=== PATIENT | male | born 1955 | race Caucasian/White ===

== ENCOUNTER 2021-08-02 16:15 | Emergency (ER) | payer MEDICARE, SELFPAY ==
--- NOTE | ~2021-08-02 | XR_ITS ---
EXAMINATION: XR chest 1V portable Exam Date/Time: 08/02/2021 16:30 CDT CLINICAL HISTORY: chest pain Comparison: 01/19/2014. RESULT: Lines, tubes, and devices: Intact sternotomy wires. Mediastinal vascular clips. Lungs and pleura: Bibasilar scar/atelectasis, otherwise clear. Cardiomediastinal silhouette: Stable cardiomediastinal silhouette. Other: No acute osseous or upper abdominal finding. IMPRESSION: No acute cardiopulmonary process Reviewed, dictated and finalized at location K.
[2021-08-02 16:18] VITALS: BP 106/86; PULSE 88; RESP 20; O2SAT 92
--- NOTE | 2021-08-02 16:20 | PC.NURSE ---
Per EDP [place] via verbal order read-back, give 4000 units heparin.
--- NOTE | 2021-08-02 16:25 | ECG_ITS ---
Measurements Intervals [place] Rate: 87 P: 11 RI: 167 QRS: 1 QRSD: 143 T: -26 QT: 385 QTc: 465 Interpretive Statements SINUS RHYTHM WITH OCCASIONAL SUPRAVENTRICULAR PREMATURE COMPLEXES INDETERMINATE AXIS RIGHT BUNDLE BRANCH BLOCK [120+ ms QRS DURATION, UPRIGHT V1, 40+ ms S IN I/aVL/V4/V5/V6] INFERIOR MYOCARDIAL INFARCTION , ACUTE ACUTE VA NO PREVIOUS ECG AVAILABLE FOR COMPARISON Electronically Signed On 08-03-2021 8:01:32 CDT by Joel Stafford M.D.
[2021-08-02 16:30] VITALS: PULSE 97; RESP 19
[2021-08-02 16:31] VITALS: BP 124/71; PULSE 96; RESP 14; O2SAT 99
--- NOTE | 2021-08-02 16:33 | ED.ARRPALP ---
HPI - Arrhythmia/Palpitations General Chief Complaint: Arrhythmia/Palpitations Stated Complaint: low blood pressure, vtach Time Seen by Provider: 08/02/21 16:23 History of Present Illness HPI narrative: Patient is a 66-year-old male who presents ER after becoming unresponsive. According the [facility] minutes prior to arrival patient came in from working on a car and was sitting eating dinner. He stated that he did not feel well and was lightheaded when he lost consciousness and fell to the floor. Patient was blue and she did not feel like he had a pulse. She administered 2 chest compressions. 911 was contacted. EMS arrived and found patient to be responsive and in ventricular tachycardia with rate in the 190s. They administered baby aspirin's as well as amiodarone 150 mg IV. Upon arrival patient has converted to a sinus rhythm. He has no chest pain. He does have an inferior STEMI with anterolateral depressions. Related Data Allergies Allergy/AdvReac Type Severity Reaction Status Date / Time propofol Allergy Rash Verified 08/02/21 16:26 Lzmwasw-JEI-YyL Reductase AdvReac Severe Confusion Verified 08/13/17 10:07 Inhibitor [Himlrku-Qsc-Sao Reductase Inhibitor] Review of Systems Review of Systems: All systems reviewed & are unremarkable except as noted in HPI and below Constitutional: Constitutional: Denies chills, Denies fever(s) and Denies weakness ENT: Denies nasal congestion and Denies sore throat Cardiovascular: Cardiovascular: Reports chest pain, Reports rapid heart rate and Denies radiating jaw, neck or arm pain Neurologic: Reports syncope, Denies headache(s), Denies focal weakness and Denies numbness PMFSH Past Medical History Medical History (Updated 08/02/21 @ 16:45 by Tiburcio Burris MD) BPH (benign prostatic hyperplasia) Coronary artery disease History of hypertension Hyperlipidemia Hypertension Surgical History Surgical History (Updated 08/02/21 @ 16:35 by Tiburcio Burris MD) History of appendectomy History of four vessel coronary artery bypass graft Social History Social History (Updated 08/02/21 @ 16:35 by Tiburcio Burris MD) Smoking status: Former smoker Smoking end date: 04/12/18 Exam Narrative: GENERAL: Well-appearing, well-nourished, and in no acute distress. HEAD: Normocephalic, atraumatic. EYES: PERRL and EOMI. ENT: Mucous membranes moist. CHEST: Clear to auscultation. No respiratory distress. HEART: Regular rate and rhythm. Normal peripheral pulses. ABDOMEN: Soft, nontender, nondistended. EXTREMITIES: Normal range of motion. No edema. SKIN: Warm, dry, no rash. NEURO: Alert and oriented x3. PSYCH: Normal mood and affect. Course Reevaluation(s) Reevaluation #1: Patient has received oral aspirin, heparin 4000 units, and we are waiting to have a driveway attendant call back from [facility] to accept STEMI transfer. The [employer] at this hospital is unavailable as a STEMI on the inpatient side is going to be using the [employer] and grounds restoration specialist. Date: 08/02/21 Time: 16:25 Reevaluation #2: Accepted by Dr. Barnett at [facility] with cardiology, and Dr. Tay in the ER. [facility] is ready to take the patient. Date: 08/02/21 Time: 16:56 Vital Signs Vital signs: Vital Signs Pulse Rate 88 08/02/21 16:18 Respiratory Rate 20 08/02/21 16:18 Blood Pressure 106/86 08/02/21 16:18 Pulse Oximetry 92 08/02/21 16:18 Pulse Rate 95 08/02/21 16:44 Respiratory Rate 20 08/02/21 16:18 Blood Pressure 124/71 08/02/21 16:44 Pulse Oximetry 92 08/02/21 16:18 MDM - Arrhythmia/Palpitations Lab Data Result diagrams: 08/02/21 16:29 08/02/21 16:29 Labs: Lab Results 08/02/21 08/02/21 08/02/21 Range/Units 16:29 16:29 16:29 WBC 9.9 (4.5-10.0) K/mm3 RBC 4.72 (4.6-6.20) M/mm3 Hgb 14.4 (14.0-18.0) g/dL Hct 44.3 (42.0-52.0) % MCV 93.9 (80-100) fl MCH 30.5 (26-34) pg MCHC 32.5 (32-
[2021-08-02 16:36] LABS: Basophils Absolute Auto 0.1 K/mm3 (0.0-0.1); Basophils Percent Auto 0.5 % (0.2-1.2); Eosinophils Absolute Auto 0.3 K/mm3 (0-0.3); Eosinophils Percent Auto 2.5 % (0-4.4); Hematocrit 44.3 % (42.0-52.0); Hemoglobin 14.4 g/dL (14.0-18.0); Immature Granulocyte Absolute 0.03 K/mm3 (0.00-0.031); Immature Granulocyte Percent A 0.3 % (0-0.5); Lymphocytes Absolute Auto 2.26 K/mm3 (0.9-3.2); Lymphocytes Percent Auto 22.9 % (18.3-44.2); Mean Corpuscular HGB Conc 32.5 g/dl (32-36); Mean Corpuscular Hemoglobin 30.5 pg (26-34); Mean Corpuscular Volume 93.9 fl (80-100); Mean Platelet Volume 9.8 fl (7.4-10.4); Monocytes Absolute Auto 0.4 K/mm3 (0.1-0.6); Monocytes Percent Auto 3.9 % (2.6-8.5); Neutrophils Absolute Auto 6.9 K/mm3 (1.3-6.7); Neutrophils Percent Auto 69.9 % (45.5-73.1); Platelet Count Result 265 k/mm3 (150-375); Red Blood Count 4.72 M/mm3 (4.6-6.20); Red Cell Distribution Width 12.3 % (11.5-14.5); White Blood Count 9.9 K/mm3 (4.5-10.0)
[2021-08-02 16:44] VITALS: BP 124/71; PULSE 95
[2021-08-02] MEDS: AMIODARONE 360 MG/D5W 200 ML 360 MG/200 ML BAG 33.33 MG IV CONT (16:44)
[2021-08-02 16:46] LABS: Alanine Aminotransferase 22 U/L (4-50); Albumin Level 4.3 g/dL (3.5-5.1); Alkaline Phosphatase 76 U/L (38-126); Anion Gap 13 mmol/L (8-16); Aspartate Amino Transferase 33 U/L (17-59); Bilirubin,Total 0.9 mg/dL (0.2-1.3); Blood Urea Nitrogen 10 mg/dL (9-20); Calcium 8.7 mg/dL (8.4-10.2); Carbon Dioxide 21 mmol/L (22-30); Chloride 103 mmol/L (98-107); Cholesterol 98 mg/dL (0-200); Estimated CRCL calculation 59 ml/min; Estimated Glomerular Filt Rate > 60; Glucose 183 mg/dL (65-110); HDL Direct 49 mg/dL; Potassium 3.1 mmol/L (3.4-5.0); Sodium 137 mmol/L (137-145); Triglycerides 169 mg/dL (<150)
[2021-08-02 16:52] LABS: INR 1.2; Prothrombin Time 14.3 Seconds (11.1-14.7)
[2021-08-02 16:53] LABS: Partial Thromboplastin Time 26.4 SECONDS (22.3-36.8)
--- NOTE | 2021-08-02 16:53 | PC.NURSE ---
1621 [facility] 1622 N[place] 1623 Kay[facility] 1624 [facility] 1625 [place] 1629 [facility] 1632 [facility] - accepted 5 min ETA 1636 [facility] Cancelled
[2021-08-02 16:58] LABS: Troponin I < 0.012 ng/mL (0.000-0.034)
[2021-08-02 17:10] LABS: LDL Cholesterol Direct < 30 mg/dL
--- NOTE | 2021-08-02 17:16 | PC.NURSE ---
Amiodarone drip continuing to infuse at time of discharge from ED.
== END 2021-08-02 17:02 | disposition short-term general hospital (02) ==
PROVIDERS: Emergency Provider Emergency Medicine; PCP Nurse Practitioner Family
DX: I21.3 ST elevation (STEMI) myocardial infarction of unspecified site (principal); I47.2 Ventricular tachycardia; I25.10 Atherosclerotic heart disease of native coronary artery without angina pectoris; I10 Essential (primary) hypertension; E78.5 Hyperlipidemia, unspecified; N40.0 Benign prostatic hyperplasia without lower urinary tract symptoms; Z87.891 Personal history of nicotine dependence
CPT/HCPCS: 36415; 71045; 80053; 80061; 84484; 85025; 85610; 85730; 86850; 86900; 86901; 93005; 96365; 99291; J0282; J1644

== ENCOUNTER 2021-12-01 13:30 | Outpatient (RCR) | payer MEDICARE, SELFPAY | END 2021-12-01 19:30 | disposition home or self-care (01) | LOC: ANHCPREHAB 13:30 | PROVIDERS: PCP Nurse Practitioner Family; Visit Provider Nurse Practitioner Adult Health | DX: I50.89 Other heart failure (principal) | CPT/HCPCS: 93798 ==

== ENCOUNTER → 2022-12-25 14:49 | Outpatient (CLI) | payer MEDICARE, SELFPAY ==
--- NOTE | ~2022-12-25 | CT_ITS ---
EXAMINATION: CT brain wo con DATE: 12/25/2022 15:03 INDICATION: Weakness of the facial muscles TECHNIQUE: Computed tomography (CT) of the head was performed without intravenous contrast. The dose- length product was 599.57 mGy-cm. Automated exposure control and iterative reconstruction technique w ere employed. COMPARISON: None FINDINGS: Generalized brain parenchymal volume loss. There are scattered moderate periventricular and subcortical white matter changes, most likely related to small vessel ischemic disease (microangiopa thy). There is a chronic right frontal lobe infarction with encephalomalacia. There is a chronic left frontal lobe infarction. No ventriculomegaly or midline shift. There is intracranial atherosclerosis paranasal sinuses and mastoids are pneumatized. No depressed skull fractures. Midline sagittal image s demonstrate a normal corpus callosum and craniovertebral junction. IMPRESSION: 1. No acute intracranial abnormality. 2: Chronic bilateral frontal lobe infarctions. 3: Chronic age-related findings. Reviewed, dictated and finalized at location B.
== END ==
PROVIDERS: PCP Nurse Practitioner Family; Visit Provider Nurse Practitioner Family
DX: R29.810 Facial weakness (principal); R94.02 Abnormal brain scan
CPT/HCPCS: 70450

== ENCOUNTER 2024-02-24 00:51 | Day surgery (SDC) | payer MEDICARE, SELFPAY ==
[2024-02-15 12:31] VITALS: BMI 24.0
[2024-02-24 09:18] VITALS: BP 105/66; PULSE 78; RESP 14; TEMP 36.6; O2SAT 100; BMI 22.9
[2024-02-24] MEDS: LACTATED RINGERS 1,000 ML 150 ML IV CONT (09:30)
--- NOTE | 2024-02-24 09:40 | P.PNAN_ITS ---
Anes - Initial Pre Proc Eval Procedure: Operation Date: 02/24/24 10:30 Proposed Procedures p Screening Colonoscopy - Yakov Charlton MD Date/Time: 02/24/24 09:40 Surgeon: Yakov Charlton MD Pre Op Diagnosis: screening colon Patient Data Age: 68 Gender: M Height: 1.78 m Weight: 72.6 kg Last Vital Signs Temp 36.6 C 02/24/24 09:18 Pulse 78 02/24/24 09:18 Resp 14 02/24/24 09:18 BP 105/66 02/24/24 09:18 Pulse Ox 100 02/24/24 09:18 O2 Del Method Room Air 02/24/24 09:18 Allergies Allergy/AdvReac Type Severity Reaction Status Date / Time Loowtdv-QXX-HqC Reductase Allergy Severe Confusion Verified 02/24/24 09:14 Inhibitor [Uaklrkb-Jiy-Ict Reductase Inhibitor] propofol Allergy Fever Verified 02/24/24 09:14 Home Medications Medication Instructions Recorded Confirmed Type aspirin 81 mg tablet 81 mg PO BID 09/09/21 02/24/24 History cholecalciferol (vitamin D3) 25 25 mcg PO DAILY 09/09/21 02/24/24 History mcg (1,000 unit) chewable tablet dapagliflozin propanediol 10 mg 10 mg PO DAILY 09/09/21 02/24/24 History tablet ezetimibe 10 mg tablet 10 mg PO HS 09/09/21 02/24/24 History omeprazole 40 mg capsule,delayed 40 mg PO DAILY 09/09/21 02/24/24 History release sacubitril 24 mg-valsartan 26 mg 0.5 tablet PO BID 09/09/21 02/24/24 History tablet (Entresto) sotalol 120 mg tablet 120 mg PO BID 09/09/21 02/24/24 History mecobalamin (vitamin B12) 1,000 1,000 mcg PO DAILY 02/15/24 02/24/24 History mcg chewable tablet Patient hx anesthesia problems: none Family hx anesthesia problems: none Results Review: All pre-operative results and documents have been reviewed as part of the pre- operative evaluation. [facility], [facility] Past Medical History Medical History (Updated 02/24/24 @ 09:40 by Edmundo Cooper MD) BPH (benign prostatic hyperplasia) COPD (chronic obstructive pulmonary disease) Coronary artery disease History of hypertension Hyperlipidemia Hypertension SHU (obstructive sleep apnea) Surgical History Surgical History (Updated 08/02/21 @ 16:35 by Tiburcio Burris MD) History of appendectomy History of four vessel coronary artery bypass graft Social History Social History Smoking packs per day: 1.5 Smoking cigarettes per day: 30.0 Years smoked: 50 Smoking pack-years: 75.00 Smoking status: Current every day smoker Tobacco type: cigarettes and e-cigarettes/vaping Smoking end date: 11/29/18 Additional smoking assessment comments: STARTED VAPING 2020- AND CONT. TO VAPE Alcohol intake: current Drinks per week: 21 Alcohol use details: DRINKS-TWISTED TEA Substance use: current Substance use type: marijuana Other substance usage details: EDIBLE OCC. FOR SLEEP Living arrangements: with family Spiritual care concerns: No Anes - Eval Final PreProcedure Day of Procedure 02/24/24 09:40 Patient weight: normal Heart: regular rate and rhythm Lungs: clear to auscultation Airway: Mallampati scale class II Neurological: alert and oriented Last oral intake: >/= 8 hours ASA classification: III Emergent: no Anesthetic plan: proceed Anesthesia type and monitoring: general GIVS and standard monitoring Results Review: All pre-operative results and documents have been reviewed as part of the pre- operative evaluation. Informed Consent: The patient's anesthetic plan and its attendant risks and benefits were discussed with the patient/family/POA. Questions were solicited and answers provided to the satisfaction of the patient/family/POA.
--- NOTE | 2024-02-24 09:56 | PM.HPGS ---
History of Present Illness History of Present Illness Consent: Risks, benefits, and alternatives have been discussed and questions answered. Patient agrees to proceed with procedure. Chief complaint: screening colon Narrative: True Zarco is a 68 year old male with colon polyp in 2018 Review of Systems Review of Systems: All systems reviewed & are unremarkable except as noted in HPI and below PMFSH Past Medical History Medical History (Updated 02/24/24 @ 09:57 by Yakov Charlton MD) BPH (benign prostatic hyperplasia) Colon polyp COPD (chronic obstructive pulmonary disease) Coronary artery disease History of hypertension Hyperlipidemia Hypertension SHU (obstructive sleep apnea) Surgical History Surgical History (Updated 08/02/21 @ 16:35 by Tiburcio Burris MD) History of appendectomy History of four vessel coronary artery bypass graft Social History Social History Smoking packs per day: 1.5 Smoking cigarettes per day: 30.0 Years smoked: 50 Smoking pack-years: 75.00 Smoking status: Current every day smoker Tobacco type: cigarettes and e-cigarettes/vaping Smoking end date: 11/29/18 Additional smoking assessment comments: STARTED VAPING 2020- AND CONT. TO VAPE Alcohol intake: current Drinks per week: 21 Alcohol use details: DRINKS-TWISTED TEA Substance use: current Substance use type: marijuana Other substance usage details: EDIBLE OCC. FOR SLEEP Living arrangements: with family Spiritual care concerns: No Meds Home Medications and Allergies Home Medications Medication Instructions Recorded Confirmed Type aspirin 81 mg tablet 81 mg PO BID 09/09/21 02/24/24 History cholecalciferol (vitamin D3) 25 25 mcg PO DAILY 09/09/21 02/24/24 History mcg (1,000 unit) chewable tablet dapagliflozin propanediol 10 mg 10 mg PO DAILY 09/09/21 02/24/24 History tablet ezetimibe 10 mg tablet 10 mg PO HS 09/09/21 02/24/24 History omeprazole 40 mg capsule,delayed 40 mg PO DAILY 09/09/21 02/24/24 History release sacubitril 24 mg-valsartan 26 mg 0.5 tablet PO BID 09/09/21 02/24/24 History tablet (Entresto) sotalol 120 mg tablet 120 mg PO BID 09/09/21 02/24/24 History mecobalamin (vitamin B12) 1,000 1,000 mcg PO DAILY 02/15/24 02/24/24 History mcg chewable tablet Allergies Allergy/AdvReac Type Severity Reaction Status Date / Time Nzocusx-WSR-HnY Reductase Allergy Severe Confusion Verified 02/24/24 09:14 Inhibitor [Tstkpkm-Acc-Rco Reductase Inhibitor] propofol Allergy Fever Verified 02/24/24 09:14 Vital Signs Vital Signs - 24 hr 02/24/24 09:18 Temperature 97.8 F Pulse Rate 78 Respiratory Rate 14 Blood Pressure 105/66 Pulse Oximetry 100 Oxygen Delivery Room Air Exam Const: General: comfortable and no acute distress HENMT: Face/Nose/Sinus: Normal nares present Eyes: General: appearance normal, both eyes and all related structures Neck: Neck: no JVD Resp: Auscultation: clear to auscultation bilaterally Cardio: Rate: regular rate Rhythm: regular rhythm GI: Inspection: non-distended GI Palp: Yes Soft to palpation Skin: General skin exam: normal color Neuro: General: gait normal Speech: normal speech Extrem: General: normal to inspection Psych: Mental Status: mental status grossly normal Assessment and Plan Assessment and plan (1) Colon polyp: Code(s): K63.5 - Polyp of colon Status: Acute Assessment and Plan: colonoscopy
[2024-02-24 10:19] VITALS: BP 93/55; PULSE 75; RESP 22; O2SAT 99
[2024-02-24 10:29] VITALS: BP 94/56; PULSE 71; RESP 24; O2SAT 99
[2024-02-24 10:39] VITALS: BP 93/53; PULSE 72; RESP 20; O2SAT 99
== END 2024-02-24 10:52 | disposition home or self-care (01) ==
PROVIDERS: PCP Family Medicine; Visit Provider Internal Medicine Gastroenterology
PROC: 0DJD8ZZ Inspection of Lower Intestinal Tract, Via Natural or Artificial Opening Endoscopic (ICD-10-PCS; CPT 45378; principal; 2024-02-24 10:30)
DX: Z12.11 Encounter for screening for malignant neoplasm of colon (principal); D12.3 Benign neoplasm of transverse colon; K64.8 Other hemorrhoids; K57.30 Diverticulosis of large intestine without perforation or abscess without bleeding; I10 Essential (primary) hypertension; E78.5 Hyperlipidemia, unspecified; G47.33 Obstructive sleep apnea (adult) (pediatric); N40.0 Benign prostatic hyperplasia without lower urinary tract symptoms; J44.9 Chronic obstructive pulmonary disease, unspecified; I25.10 Atherosclerotic heart disease of native coronary artery without angina pectoris; F17.210 Nicotine dependence, cigarettes, uncomplicated; F12.90 Cannabis use, unspecified, uncomplicated; Z79.82 Long term (current) use of aspirin; Z98.890 Other specified postprocedural states; Z95.5 Presence of coronary angioplasty implant and graft; Z86.79 Personal history of other diseases of the circulatory system
CPT/HCPCS: 45385; 88305; J2003; J2704; J7120